=== PATIENT | male | born 1980 | race Asian ===

== ENCOUNTER 2020-12-27 11:45 | Emergency (ER) | payer MEDICAID ==
[2020-12-27] MEDS ORDERED: HYDROcod/ACETAM 5/325 MG TABLET PO STA (13:18)
--- NOTE | 2020-12-27 13:20 | ED Physician Documentation ---
History of Present Illness - Stated complaint Stated Complaint: TOOTH PX - Chief complaint Chief Complaint: Heent - Additonal information Additional information: 40-year-old male presents the emergency department for evaluation of left upper molar pain. Reports it has been intermittent for about a month but acutely worse today. No trismus, no fevers, no facial swelling or dysphonia. He has tried Anbesol without relief of pain. He attempted to call the dentist today but the office was closed. He has not sought dental care in many years. Positive tobacco history. Review of Systems Constitutional: denies: Fever, Myalgias Eyes: reports: Reviewed and negative Ears: reports: Reviewed and negative Nose: reports: Reviewed and negative Throat: reports: Dental pain / toothache. denies: Oral lesions / sores, Sore throat, Swollen tonsils Cardiac: denies: Chest pain / pressure, Palpitations Respiratory: denies: Dyspnea, Cough GI: denies: Abdominal Pain, Abdominal Swelling PD PAST MEDICAL HISTORY - Present Medications Home Medications: Ambulatory Orders Medication Instructions Recorded Confirmed Amox/Clav 875/125 [Augmentin] 1 each PO Q12H #20 tablet 12/27/20 Ibuprofen [Motrin] 600 mg PO Q6H PRN #30 tab 12/27/20 - Allergies Allergies/Adverse Reactions: Allergies Allergy/AdvReac Type Severity Reaction Status Date / Time No Known Drug Allergies Allergy Verified 12/27/20 12:14 PD ED PE EXPANDED - General General: Alert, No acute distress - HEENT HEENT: Dental decay. No: Dentition normal (Teeth in generally poor repair. Posterior left upper molar with obvious decay to the gumline with mild gumline swelling and erythema. No fluctuant drainage. No trismus. Normal phonation and swallow.), Dental trauma - Cardiac Cardiac: Regular Rate, Radial strong equal, Cap refill < 2 sec. No: Murmur Present - Respiratory Respiratory: Clear to ausultation trung. No: Distress, Labored Results - Vitals Vitals: Vital Signs - 24 hr 12/27/20 12:10 Temperature 36.3 C L Heart Rate 64 Respiratory 16 Rate Blood Pressure 134/95 H O2 Saturation 98 Oxygen O2 Source Room air PD MEDICAL DECISION MAKING - ED course Complexity details: reviewed results, re-evaluated patient, d/w patient ED course: 40-year-old male presents with acute left upper molar pain for more than a month that has waxed and waned but acutely worse today. He has no red flags. This gentleman is advised that he needs a dentist to address the multiple caries and teeth concerns that he has. He is not a good candidate for the calcium given the location of the dental decay on this tooth at the gumline. Patient will be started on Augmentin recommend ibuprofen warm salt water rinses plus Anbesol. Emergent return precautions were discussed. Departure - Departure Disposition: Home, Self Care Clinical Impression: Dental decay Condition: Stable Record reviewed to determine appropriate education?: Yes Instructions: ED [facility] Dental Prescriptions: Amox/Clav 875/125 [Augmentin] 1 each PO Q12H #20 tablet Ibuprofen [Motrin] 600 mg PO Q6H PRN #30 tab PRN Reason: Pain Comments: Jose I hope you to feels better soon. In the long-term only a dentist can address your tooth issues. It is important you schedule an appointment as soon as possible. Like you to rinse your mouth with warm salt water 3 times a day. Take ibuprofen or Tylenol as prescribed for discomfort. I have also prescribed a short course of antibiotics. If at any point you have facial swelling, fevers, cannot swallow or speak normally then please return to the emergency department for a second evaluation.
[2020-12-27 13:29] VITALS: BP 144/94
== END 2020-12-27 14:02 | disposition home or self-care (01) ==
LOC: ED 11:45
DX: K02.9 Dental caries, unspecified (principal); Z72.0 Tobacco use
CPT/HCPCS: 99282; 99283; A9270

== ENCOUNTER 2021-10-02 16:21 | Outpatient (CLI) | payer OTHER ==
[2021-10-02] MEDS ORDERED: IOVERSOL 320 100 ML VIAL IVP ONE ×2 (17:04→18:55)
--- NOTE | 2021-10-02 17:23 | CT Report ---
PROCEDURE: HEAD WO INDICATIONS: SWOLLEN LYMPH NODES, TEETH INFECTIONS, SKULL PAIN TECHNIQUE: Noncontrast 4.5 mm thick angled axial sections acquired from the foramen magnum to the vertex. For r adiation dose reduction, the following was used: automated exposure control, adjustment of mA and/or kV according to patient size. COMPARISON: Correlation is made with the accompanying soft tissue neck CT, 10/02/2021. FINDINGS: Image quality: Excellent. CSF spaces: Basal cisterns are patent. No extra-axial fluid collections. Ventricles are normal in size and shape. Brain: No midline shift. No intracranial masses or hemorrhage. Ramos-white matter interface is norm al. Skull and face: Calvarium and visualized facial bones are intact, without suspicious lesions. Sinuses: Visualized sinuses and mastoids are clear. IMPRESSION: Unremarkable noncontrast head CT. Reviewed by: Steven Phelps MD on 10/02/2021 4:21 PM [facility] Approved by: Steven Phelps MD on 10/02/2021 4:21 PM [facility] Station ID: [id number]
--- NOTE | 2021-10-02 17:27 | CT Report ---
PROCEDURE: SOFT TISSUE NECK W INDICATIONS: SWOLLEN LYMPH NODES, TEETH INFECTIONS, SKULL PAIN TECHNIQUE: After the administration of intravenous contrast, 3.0 mm axial sections acquired from the sella to th e aortic arch. Additional oblique axial 3.0 mm sections acquired through the pharynx. 3 mm thick co jhonny reformats were generated. For radiation dose reduction, the following was used: automated exp osure control, adjustment of mA and/or kV according to patient size. COMPARISON: Correlation is made with the accompanying head CT, 10/02/2021. FINDINGS: Image quality: Excellent. Lymph nodes: A soft tissue marker can be seen upon the area of clinical concern within the left later al posterior neck. At this site, or Prominent lymph nodes are seen, without cornelia enlargement. No masses are seen. Borderline prominent lymph nodes are seen elsewhere, it without cornelia enlargement. Vessels: Visualized vasculature appears patent. Neck spaces: The oropharynx, nasopharynx, and pharynx demonstrate no mucosal lesions. The vocal cor ds, false vocal cords, pyriform sinuses, epiglottis, vallecula, and tongue base all appear normal. E xtramucosal spaces appear unremarkable. Glands: The parotid and submandibular glands appear normal. The thyroid is normal in size and there are no incidental findings. Miscellaneous: Visualized brain and orbits appear normal. Lung apices appear clear. Superficial so ft tissues appear normal. Bones: Poor dentition can be seen, with numerous caries. There is focal erosion seen involving the r ight posterior maxilla, where there is a largely eroded posterior molar seen that demonstrates periap ical lucency, as on series 5 images 62 and 63. No suspicious bony lesions. Visualized sinuses and mastoids appear unremarkable. IMPRESSION: No cornelia soft tissue abscess can be seen. Poor dentition is seen, including a largely eroded posterior right maxillary molar that demonstrates periapical lucency, which is attributed to periodontal abscess. Please correlate with dental examin ation. Borderline prominent lymph nodes can be seen, including at the area of clinical concern involving the left posterior lateral neck. No frankly enlarged lymph nodes are detected. Reviewed by: Steven Phelps MD on 10/02/2021 4:25 PM [facility] Approved by: Steven Phelps MD on 10/02/2021 4:25 PM [facility] Station ID: [id number]
== END 2021-10-02 16:22 | disposition home or self-care (01) ==
LOC: DI 16:21
PROVIDERS: ATTEND Registered Nurse
DX: R59.0 Localized enlarged lymph nodes (principal); K04.7 Periapical abscess without sinus; R51.9 Headache, unspecified
CPT/HCPCS: 70450; 70491; Q9967